=== PATIENT | male | born 1995 | race Caucasian/White ===

== ENCOUNTER 2021-07-22 23:55 | Emergency (ER) | payer SELFPAY ==
[2021-07-23 02:38] LABS: HEMOGLOBIN 15.9 gm/dl (14.0-17.5); RED BLOOD COUNT 4.95 M/UL (4.20-5.50)
[2021-07-23 02:55] LABS: BUN/CREATININE RATIO 17 (0-10)
== END 2021-07-23 10:40 | disposition home or self-care (01) ==
LOC: ER1 23:55
PROVIDERS: Physician Assistant
DX: F10.129 Alcohol abuse with intoxication, unspecified (principal); Y90.8 Blood alcohol level of 240 mg/100 ml or more; F17.210 Nicotine dependence, cigarettes, uncomplicated; Z88.0 Allergy status to penicillin
CPT/HCPCS: 80053; 85027; 99284; G0480